=== PATIENT | male | born 1930 | race Caucasian/White ===

== ENCOUNTER 2019-04-01 11:29 | Observation (INO) | payer MEDICARE ==
[2019-04-01 12:01] LABS: #Basophils 0.1 thou/uL (0.0-0.2); #Eosinphils 0.2 thou/uL (0.0-0.7); #Lymphocytes 1.2 thou/uL (1.20-3.40); #Neutrophils 7.2 thou/uL (1.40-6.50); %Basophils 0.6 % (0.0-1.0); %Eosinophils 1.9 % (0.0-10.0); %Lymphocytes 12.5 % (21.0-51.0); Hemoglobin 13.2 g/dL (14.0-18.0); Mean Corpuscular HGB CONC 33.2 g/dL (32.0-36.0); Mean Corpuscular Hemoglobin 32.6 pg (27.0-31.0); Mean Corpuscular Volume 98.3 fL (78.0-98.0); Mean Platelet Volume 7.1 fL (7.4-10.4); Platelet Count 220 thou/uL (130-400); RBC Distribution Width 14.4 % (11.5-14.5); Red Blood Cell (RBC) Count 4.04 mill/uL (4.70-6.10); White Blood Cell (WBC) Count 9.6 thou/uL (4.8-10.8)
[2019-04-01 12:43] LABS: ALT (SGPT) 32 U/L (8-55); AST (SGOT) 25 U/L (5-34); Albumin 4.1 g/dL (3.4-4.8); Alkaline Phosphatase 45 U/L (40-150); Anion Gap 12 mmol/L (10-20); BUN (Urea Nitrogen) 23 mg/dL (8.4-25.7); Bilirubin, Total 0.9 mg/dL (0.2-1.2); Calc. Creatinine Clearance 0 mL/min (70-130); Calcium 9.5 mg/dL (7.8-10.44); Carbon Dioxide 19 mmol/L (23-31); Chloride 111 mmol/L (98-107); Estimated GFR-MDRD 64; Globulin 2.6 g/dL (2.4-3.5); Glucose 102 mg/dL (83-110); Potassium 4.4 mmol/L (3.5-5.1); Protein, Total 6.7 g/dL (5.8-8.1); Sodium 137 mmol/L (136-145)
--- NOTE | 2019-04-01 13:20 | CT ---
CT BRAIN WITHOUT CONTRAST: HISTORY:Syncope, weakness. Prostate cancer, atrial fibrillation. Patient on Xarelto. COMPARISON:None FINDINGS: There are foci of decreased attenuation in the periventricular white matter, consistent with chronic small vessel ischemic disease. No evidence of acute infarct, hemorrhage, midline shift or abnormal extra-axial fluid collections is seen. The ventricular size is appropriate and the basilar cisterns are patent. The bony calvarium is intact. The visualized paranasal sinuses and mastoid air cells are well aerated. Possibility of intracranial metastatic disease cannot be excluded due to absence of IV contrast. IMPRESSION: No CT evidence of acute intracranial process.
[2019-04-01 13:55] LABS: Bilirubin Negative (Negative); Blood, Urine Negative (Negative); Clarity CLEAR (Clear); Glucose, Urine (Dipstick) Negative (Negative); Leukocyte Negative (Negative); Nitrite Negative (Negative); Protein, Urine (Dipstick) Negative (Neg-Trace); Specific Gravity, Urine 1.022 (1.002-1.036)
[2019-04-01 16:19] LABS: Troponin I 0.018 ng/mL (< 0.028)
[2019-04-01] MEDS ORDERED: Acetaminophen 325 MG TAB PO PRN (16:26)
[2019-04-01] MEDS ORDERED: Zolpidem Tartrate 5 MG TAB PO PRN (16:26)
[2019-04-01] MEDS ORDERED: Ondansetron ODT 4 MG TAB PO PRN (16:26)
--- NOTE | 2019-04-01 17:16 | ULT ---
Carotid arterial Doppler ultrasound: 04/01/2019 COMPARISON: None HISTORY: Syncope TECHNIQUE: Multiplanar grayscale sonographic assessment of the arterial structures of the neck obtain ed with color flow and spectral analysis FINDINGS: Antegrade blood flow noted within the carotid and vertebral system bilaterally. The right c ommon carotid artery is tortuous proximally. Peak systolic velocity within the common carotid artery is 37 cm/s on the right and 71 cm/s on the le ft. Peak systolic velocity of the internal carotid artery is 34 cm/s on the right and 44 cm/s on the left. ICA/CCA ratio 0.9 on the right and 0.6 on the left. No hemodynamically significant stenosis noted on the basis of sonographic velocity criteria. IMPRESSION: No sonographic evidence of hemodynamically significant stenosis.
--- NOTE | 2019-04-01 17:38 | RAD ---
2 views of the chest: 04/01/2019 COMPARISON: 12/12/2016 HISTORY: Syncope, shaking FINDINGS: The descending thoracic aorta is tortuous. No pneumothorax or pleural fluid. No focal conso lidation or alveolar edema. Small hiatal hernia noted. Lungs are hyperinflated, suggesting air trapping. IMPRESSION: No radiographic evidence of acute cardiopulmonary disease.
--- NOTE | 2019-04-01 17:43 | HP ---
PRIMARY CARE PROVIDER: Leeroy Tran MD. HISTORY OF PRESENT ILLNESS: Referred to the [facility] for syncope. The patient got up out of bed this morning, felt weak, got dressed, went to the bathroom, was sitting on the commode. Family says he jerked a few times, passed out. He was out just a few seconds. The manager clinical informatics were called. He was lucid, cooperative at that time. He is amnesic for that episode. He had no incontinence of stool or urine. No prior history of fainting. PAST MEDICAL HISTORY: Pertinent for atrial fibrillation; hypertension; dyslipidemia; and prostate cancer, for which he has had radiation therapy 10 to 15 years ago. He has had a recurrence. He has been recently started on Lupron, and his notes that his symptoms have dramatically changed on the Lupron that he has been weak. CURRENT MEDICATIONS: 1. Lisinopril 2.5 mg a day. 2. Lipitor 40 mg a day. 3. Aspirin 81 mg a day. 4. Lasix 40 mg a day. 5. Digoxin 125 mcg a day. 6. Isosorbide dinitrate 30 mg in the morning. 7. Metoprolol 25 mg twice a day. 8. Pepcid AC 10 mg. 9. Megestrol 20 mg 2 tablets twice a day. 10. Oxybutynin 5 mg twice a day. 11. Xarelto 15 mg p.o. b.i.d. ALLERGIES: CODEINE SULFATE. PAST SURGICAL HISTORY: Bilateral cataract surgeries; multiple skin cancers removed, basal cell and squamous cell. FAMILY HISTORY: Mother of brain tumor. Father of dementia. He has 2 siblings with prostate cancer and early dementia. SOCIAL HISTORY: . Full code status. at bedside. No tobacco. Drinks 2 glasses of wine at night. REVIEW OF SYSTEMS: GENERAL: No fevers, sweats, or chills. EYES: No double vision, blurred vision, or flashing lights. EARS, NOSE, AND THROAT: No ear pain or drainage. He did have some nasal bleeding on Coumadin in the distant past. No oral pain. CARDIAC: No pressure, chest pain, paroxysmal nocturnal dyspnea, or orthopnea. RESPIRATIONS: No cough, wheezing, or asthma. GASTROINTESTINAL: He has some epigastric pain after a meal lasted about 30 minutes about 2 nights ago, nothing since, lasted only about 30 minutes. No associated nausea, vomiting, etc. GENITOURINARY: No hematuria or dysuria. MUSCULOSKELETAL: No pain or swelling in his arms or legs. NEUROLOGIC: No strokes, seizures, or focal weakness. PSYCHIATRIC: No anxiety or depression. SKIN: Easy bruising with minor trauma. No rashes. HEME/LYMPH: No tender or swollen lymph nodes in the axilla, inguinal, or cervical area. PHYSICAL EXAMINATION: GENERAL: He is alert, oriented, cooperative, pleasant gentleman. Parenthetically, somehow I got on the bad side of his , and she is currently quite hostile and sarcastic with me. VITAL SIGNS: Blood pressure 152/91, pulse 80, respirations 18, temperature 97.9. HEAD, EYES, EARS, NOSE, AND THROAT: Reveals pupils round with implants. Extraocular movements are intact. Sclerae are white. Tympanic membranes are clear. Nose is clear. Oral mucous membranes are wet. NECK: Supple without jugular venous distention, adenopathy, or thyromegaly. CHEST: Clear to auscultation and percussion. HEART: Regular rate and rhythm. 3/6 pansystolic murmur. ABDOMEN: Soft. Bowel sounds are normal. There is no hepatosplenomegaly. No mass. No bruit. EXTREMITIES: No cyanosis, clubbing, or edema. PULSES: Carotid, radial, femoral, and dorsalis pedis pulses intact. SKIN: Warm and dry without bruises or rash. HEME/LYMPH: No tender or swollen lymph nodes in the axilla, inguinal, or cervical area. NEUROLOGIC: Cranial nerves 2 through 12 are intact. Deep tendon reflexes are symmetric. IMAGING DATA: EKG; atrial fibrillation, nonspecific ST-T abnormality, Q waves anteriorly consistent with an old anterior MS. Brain CT was done, which showed no acute intracranial abnormality, reviewed by me. Chest x-ray has been ordered. LABORATORY DATA: Comprehensive metabolic profile; chloride of 111, CO2 of 19, otherwise normal. Troponins normal at 0.017 and 0.018. BNP was 413. Urine was clear. White count was 9.6, hemoglobin 13.2, platelet count 229,000. ADMITTING DIAGNOSES: 1. Syncope. 2. Atrial fibrillation. 3. Chronic anticoagulation. 4. Hypertension. 5. Mitral insufficiency. 6. Prostate cancer, on Lupron. 7. Dyslipidemia. PLAN: 23-hour observation for telemetry. Carotid ultrasounds. Because of the jerking, a prolactin level has been ordered. Dr. Lilly is being consulted. The patient has had a recent echocardiogram, and I have not done one for his heart murmur because of that. CBC and basic metabolic profile will be repeated in the morning. ADDITIONAL NOTE: During the interview and exam, I noticed a cellphone being carried around by one of the female members of the group. I did not take any note of it till near the end when I noticed that obviously I was either being recorded or someone was listening in. There was a red dot in the middle of the phone where you would turn it off. I said nothing about this, but it has made me extremely uncomfortable in dealing with this patient and his family. Job ID: [id number]
[2019-04-01 18:41] LABS: Troponin I 0.034 ng/mL (< 0.028)
[2019-04-01 18:59] VITALS: BMI 25.2
[2019-04-01] MEDS: Rivaroxaban 15 MG TAB PO SCH (21:07)
[2019-04-01] MEDS: Atorvastatin Calcium 40 MG TAB PO SCH (21:07)
[2019-04-01] MEDS: Metoprolol Tartrate 25 MG TAB PO SCH (21:08)
[2019-04-02 05:52] LABS: #Basophils 0.1 thou/uL (0.0-0.2); #Eosinphils 0.3 thou/uL (0.0-0.7); #Lymphocytes 1.4 thou/uL (1.20-3.40); #Monocytes 1.1 thou/uL (0.11-0.59); #Neutrophils 4.9 thou/uL (1.40-6.50); %Basophils 0.8 % (0.0-1.0); %Eosinophils 3.4 % (0.0-10.0); %Lymphocytes 18.4 % (21.0-51.0); %Monocytes 14.6 % (0.0-10.0); %Neutrophils 62.7 % (42.0-75.0); Hemoglobin 12.8 g/dL (14.0-18.0); Mean Corpuscular HGB CONC 33.7 g/dL (32.0-36.0); Mean Corpuscular Volume 98.1 fL (78.0-98.0); Mean Platelet Volume 7.4 fL (7.4-10.4); Platelet Count 193 thou/uL (130-400); RBC Distribution Width 14.4 % (11.5-14.5); Red Blood Cell (RBC) Count 3.87 mill/uL (4.70-6.10); White Blood Cell (WBC) Count 7.7 thou/uL (4.8-10.8)
[2019-04-02 06:04] LABS: Anion Gap 11 mmol/L (10-20); BUN (Urea Nitrogen) 23 mg/dL (8.4-25.7); Calc. Creatinine Clearance 63 mL/min (70-130); Carbon Dioxide 20 mmol/L (23-31); Chloride 107 mmol/L (98-107); Estimated GFR-MDRD 75; Glucose 88 mg/dL (83-110); Potassium 3.7 mmol/L (3.5-5.1); Sodium 134 mmol/L (136-145)
[2019-04-02] MEDS: Furosemide 40 MG TAB PO SCH (08:17)
[2019-04-02] MEDS: Lisinopril 2.5 MG TAB PO SCH (08:17)
[2019-04-02] MEDS: Rivaroxaban 15 MG TAB PO SCH ×2 (08:17→21:21)
[2019-04-02] MEDS: Aspirin 81 mg Enteric Coated Tablet PO SCH (08:17)
[2019-04-02] MEDS: Metoprolol Tartrate 25 MG TAB PO SCH ×2 (08:18→21:20)
[2019-04-02] MEDS ORDERED: Gadobenate Dimeglumine 529 MG/1 ML (20ML VIAL) ONE (08:47)
--- NOTE | 2019-04-02 13:40 | PDOC.PN ---
- Subjective Encounter Start Date: 04/02/19 Encounter Start Time: 13:36 Subjective: Patient states he is feeling great. Denies any complaints. -: Reports having a great appetite and no n/v. Denies any pain. -: Has been walking to the toilet without any dizziness or lightheadedness. Denies any abdominal pain. Normal bowel movements. No urinary symptoms. Denies any chest pain or sob. - Objective Resuscitation Status - Order Detail: 04/01/19 16:23 Resuscitation Status Routine Resuscitation Status: FULL: Full Resuscitation Discussed with: Gloria Vital Signs & Weight: Vital Signs (12 hours) Temp Pulse Resp BP BP BP BP 04/02/19 11:52 97.9 F 65 18 127/81 04/02/19 07:30 98.4 F 78 18 154/95 H 168/92 H 173/100 H 04/02/19 03:58 97.6 F 84 16 170/90 H Pulse Ox 04/02/19 11:52 95 04/02/19 07:30 98 04/02/19 03:58 96 Weight Weight 186 lb 9 oz I&O: 04/01/19 04/02/19 04/03/19 06:59 06:59 06:59 Intake Total 450 Balance 450 Result Diagrams: 04/02/19 04:34 04/02/19 04:34 Phys Exam - Physical Examination Constitutional: NAD HEENT: PERRLA, moist MMs, sclera anicteric, oral pharynx no lesions Neck: no nodes, supple, full ROM Respiratory: clear to auscultation bilateral Cardiovascular: RRR Gastrointestinal: soft, non-tender, no distention, positive bowel sounds Musculoskeletal: no edema, pulses present Neurological: non-focal, normal sensation, moves all 4 limbs Psychiatric: normal affect, A&O x 3 Skin: no rash, normal turgor Dx/Plan (1) Orthostatic hypotension Code(s): I95.1 - ORTHOSTATIC HYPOTENSION Status: Acute (2) Afib Code(s): I48.91 - UNSPECIFIED ATRIAL FIBRILLATION Status: Acute (3) CHF (congestive heart failure) Code(s): I50.9 - HEART FAILURE, UNSPECIFIED Status: Acute (4) HTN (hypertension) Code(s): I10 - ESSENTIAL (PRIMARY) HYPERTENSION Status: Chronic (5) Prostate cancer Code(s): C61 - MALIGNANT NEOPLASM OF PROSTATE Status: Chronic - Plan cont current plan of care Discussed with Dr. Hernandez who agreed given elevated Procalcitonin -: and Prostate cancer, would benefit from MRI brain. -: Awaiting Cardiology review. -: Repeat Orthostatic BPs (drop 170 to 12 systolic sitting to standing yest) ADDENDUM: MRI Brain unremarkable. Seen by Dr. Biggs who feels episode related to postural hypotension. He advised halter monitor and fup as outpatient. refusing. Will be monitored overnight, for discharge tomorrow. Patient remains without complaints.
--- NOTE | 2019-04-02 17:09 | MRI ---
MRI BRAIN WITH AND WITHOUT CONTRAST: DATE: 04/02/2019 HISTORY: 80-year-old female with seizure-like activity, generalized weakness, syncope, history of prostate can cer. TECHNIQUE: Multiplanar, multisequence MRI of the brain obtained pre and post IV injection of gadolinium based co ntrast agent. FINDINGS: There is no obstructive hydrocephalus. There is no midline shift or any other evidence of mass effect . There is no extra-axial fluid collection. There is a moderate degree of T2-hyperintensities in the cerebral white matter consistent with chronic ischemic white matter changes due to microvascular atherosclerosis. There is no abnormal enhancement, mass, recent hemorrhage, or restricted diffusion. IMPRESSION: 1) moderate chronic ischemic white matter changes. 2) otherwise negative
--- NOTE | 2019-04-02 21:11 | PRG ---
DATE OF SERVICE: 04/02/2019 SUBJECTIVE: Mr. Delgado is an 89-year-old patient of Dr. Harshil Lilly, who had a syncopal episode yesterday. Mr. Delgado states he does remember the details of what happened, but his fortunately is able to give a very good history. He went to take a shower. He did not come back. When she expected into, she found him unconscious on the toilet. She is able to help him down. He regained consciousness. The patient has history of prostate cancer, is on Lupron, received Lupron dose relatively recently and feels weak after that. PAST MEDICAL HISTORY: Coronary artery disease, best treated medically. Atrial fibrillation, chronic. OBJECTIVE: VITAL SIGNS: Blood pressure has been variable 150/95 and another of 127/81, pulse 65 and irregular. LUNGS: Clear. CARDIAC: Irregularly irregular. ABDOMEN: Soft, nontender. EXTREMITIES: There is no edema. ASSESSMENT AND PLAN: 1. Syncopal episode, seems most likely to be orthostatic hypotension, but certainly with atrial fibrillation, a pause can occur. However, this seems to have resolved when he is able to lie flat. He did not completely fall off the toilet, easily seen with a long pause. As a precaution, the following will be done: a. Monitor him here in the hospital. b. Increase activity. c. Check orthostatic hypotension. 2. Probably home tomorrow with a monitor if doing well. Dr. Lilly will resume care tomorrow. Job ID: [id number]
[2019-04-02] MEDS: Atorvastatin Calcium 40 MG TAB PO SCH (21:20)
[2019-04-03] MEDS: Furosemide 40 MG TAB PO SCH (08:48)
[2019-04-03] MEDS: Aspirin 81 mg Enteric Coated Tablet PO SCH (08:48)
[2019-04-03] MEDS: Lisinopril 2.5 MG TAB PO SCH (08:48)
[2019-04-03] MEDS: Metoprolol Tartrate 25 MG TAB PO SCH (08:48)
[2019-04-03] MEDS: Rivaroxaban 15 MG TAB PO SCH (08:49)
[2019-04-03 15:25] VITALS: BP 131/86; TEMP 98.5
--- NOTE | 2019-04-04 12:51 | DIS ---
DATE OF ADMISSION: 04/01/2019 DATE OF DISCHARGE: 04/03/2019 CONSULTING PHYSICIAN: Dr. Biggs, Cardiology. DISCHARGE DIAGNOSES: 1. Syncopal episode. 2. Orthostatic hypotension, resolved. 3. Atrial fibrillation. 4. Coronary artery disease. 5. Hypertension. HOSPITAL COURSE: Mr. Delgado is an 89-year-old man, who was admitted after presenting with a syncopal episode. After further questioning, it appears that he did not fall completely to the ground, but nearly fell while on the toilet. He has had falls in the past associated with orthostatic hypotension. The patient denies experiencing any preceding chest pain or shortness of breath. No dizziness. Family reported jerking movement and he came to within a few seconds. He was admitted for further investigations and underwent laboratory studies that are notable for BNP of 413. Full blood count was unremarkable. Troponins were negative x3. He did have urinalysis done, which was also negative. The patient did well throughout his entire hospital stay and had no further episodes. He did have orthostatic hypotension evident on orthostatic BPs with a drop from 162/102 while supine to 127/95 while standing. He received gentle hydration. On day of discharge, his blood pressures have improved. He had a supine blood pressure of 136/94 to 110/78 while sitting and then 107/86 while standing. He denies having any symptoms such as dizziness or lightheadedness. He has tolerated a very good diet. We will monitor overnight. He did undergo imaging including a CT of the brain, which showed no acute intracranial abnormalities. This was followed by carotid Dopplers, which showed no hemodynamically significant stenosis on the left or right ICA. Chest x-ray was done, which showed mild CHF. However, the patient did not have any clinical symptoms of fluid overload. He had an MRI of the brain done, which showed moderate chronic ischemic white matter changes, otherwise negative. Dr. Biggs evaluated the patient on 04/02/2019 and had cleared him from a cardiac standpoint for discharge on a monitor. The family, however, did not feel comfortable with this, therefore he was kept overnight for observation. On day of discharge, the patient continues to do well. He has been cleared by Dr. Lilly, who is backshoe person with plans for discharge on Holter monitor and follow up as an outpatient. In fact, he has remained asymptomatic throughout his stay and feels significantly better. He is cleared for discharge to home. REVIEW OF SYSTEMS: All other review of systems apart from those mentioned above in hospital course are negative. PHYSICAL EXAMINATION: GENERAL: The patient appears well developed, well nourished, and is in no acute distress. He is in very good spirits and very much eager to go home. VITAL SIGNS: Temperature 98.1, pulse 80, respirations 20, O2 saturation 95% on room air, blood pressure 139/104. HEENT: Normocephalic, atraumatic. Pupils are equal, round, and reactive to light. Extraocular movements are intact. No nystagmus present. Oropharynx is clear. NECK: Supple without lymphadenopathy. Full range of motion. No cervical spine tenderness. CARDIAC: Normal heart sounds. LUNGS: Clear to auscultation bilaterally without any wheezes, rales, or rhonchi. No chest wall tenderness. ABDOMEN: Soft, nontender, nondistended. Normoactive bowel sounds present. EXTREMITIES: Without any lower limb edema or calf pain/tenderness. NEUROLOGIC: Alert and oriented x3. Speech is normal. Facial movements and sensation are intact. No neuro deficits on exam. Gait, normal. SKIN: Without rash or jaundice. LABORATORY DATA: White blood count 7.7, hemoglobin 12.8, hematocrit 37.9, platelets 193. Sodium 134, potassium 3.7, chloride 107, carbon dioxide 20, anion gap 11, BUN 23, creatinine 0.95, GFR 75, glucose 88, calcium 9. LFTs unremarkable. Troponins; 0.017, 0.018, 0.034. BNP 413.9. Prolactin on admission. Urinalysis is negative. IMAGING: As mentioned above in hospital course. CONDITION: Stable at discharge. DIET: Heart healthy. ACTIVITY: As tolerated. DISCHARGE MEDICATIONS: The patient advised to resume home medications. FOLLOWUP: The patient advised to follow up with his primary care physician within 1 week. He will follow up with Dr. Lilly as an outpatient. Dr. Lilly will set up a Holter monitor. DISPOSITION: The patient was medically cleared for discharge home on 04/03/2019. His case was discussed with Dr. Hernandez, who agrees with plan of care as described above. Job ID: [id number]
--- NOTE | 2019-04-06 16:05 | EKG ---
Test Reason : SYNCOPE Blood Pressure : / mmHG Vent. Rate : 069 BPM Atrial Rate : 127 BPM P-R Int : 000 ms QRS Dur : 102 ms QT Int : 406 ms P-R-T Axes : 000 007 -87 degrees QTc Int : 435 ms Atrial fibrillation with premature ventricular or aberrantly conducted complexes Inferior infarct , age undetermined Anterior infarct , age undetermined Abnormal ECG Confirmed by GERARD NEVILLE ([id number]), scientific editor MARIA DE JESUS MUSTAFA ([id number]) on 04/06/2019 4:04:48 PM Referred By: JAMIN Confirmed By:GERARD NEVILLE
== END 2019-04-03 17:35 | disposition home or self-care (01) ==
LOC: ERS 11:29 → ERHOLD 14:30 → 2SW 18:36
PROVIDERS: ADMIT Internal Medicine; ATTEND Internal Medicine
DX: I95.1 Orthostatic hypotension (principal); I25.10 Atherosclerotic heart disease of native coronary artery without angina pectoris; I48.2 Chronic atrial fibrillation; E78.5 Hyperlipidemia, unspecified; I11.0 Hypertensive heart disease with heart failure; I50.9 Heart failure, unspecified; C61 Malignant neoplasm of prostate; Z79.01 Long term (current) use of anticoagulants; Z79.82 Long term (current) use of aspirin; Z79.899 Other long term (current) drug therapy; Z88.5 Allergy status to narcotic agent
CPT/HCPCS: 70450; 70553; 71046; 80048; 80053; 81003; 83880; 84146; 84484 ×2; 85025 ×2; 93005; 93880; 96360; 99285; G0378 ×2; 36415; A9577

== ENCOUNTER 2019-06-29 23:14 | Observation (INO) | payer MEDICARE ==
[2019-06-29] MEDS ORDERED: cloNIDine 0.1 MG TAB ONE (23:44)
[2019-06-29 23:50] LABS: Hemoglobin 13.2 g/dL (14.0-18.0); Mean Corpuscular HGB CONC 33.5 g/dL (32.0-36.0); Mean Platelet Volume 6.8 fL (7.4-10.4); Platelet Count 172 thou/uL (130-400); RBC Distribution Width 13.4 % (11.5-14.5); Red Blood Cell (RBC) Count 3.89 mill/uL (4.70-6.10); White Blood Cell (WBC) Count 6.6 thou/uL (4.8-10.8)
--- NOTE | 2019-06-29 23:52 | CT ---
CT Brain WO Con History: High blood pressure. Comparison: CT brain April 01, 2019 Findings: No acute hemorrhage or infarct. No midline shift or mass effect. Ventricular size and extra -axial CSF spaces are normal. Calvarium is intact. Paranasal sinuses and mastoids are clear. Advanced chronic microangiopathic changes. Impression: No acute intracranial abnormality.
--- NOTE | 2019-06-29 23:53 | RAD ---
XR Chest 1 View Portable History: Chest pain Comparison: Radiograph April 01, 2019 Findings: The aorta is tortuous. Scarring both lung bases. No confluent airspace consolidation, pneum othorax or effusion. No acute osseous abnormality. Impression: No acute intrathoracic abnormality.
[2019-06-30 00:06] LABS: ALT (SGPT) 16 U/L (8-55); AST (SGOT) 18 U/L (5-34); Albumin 3.9 g/dL (3.4-4.8); Alkaline Phosphatase 49 U/L (40-150); Anion Gap 12 mmol/L (10-20); BUN (Urea Nitrogen) 17 mg/dL (8.4-25.7); Bilirubin, Total 0.5 mg/dL (0.2-1.2); Calc. Creatinine Clearance 0 mL/min (70-130); Calcium 9.3 mg/dL (7.8-10.44); Carbon Dioxide 23 mmol/L (23-31); Chloride 104 mmol/L (98-107); Estimated GFR-MDRD 87; Globulin 2.7 g/dL (2.4-3.5); Glucose 110 mg/dL (83-110); Potassium 3.8 mmol/L (3.5-5.1); Protein, Total 6.6 g/dL (5.8-8.1); Sodium 135 mmol/L (136-145)
[2019-06-30 00:18] LABS: Bilirubin Negative (Negative); Blood, Urine Trace (Negative); Clarity Clear (Clear); Glucose, Urine (Dipstick) Normal (Negative); Leukocyte Negative Leu/uL (Negative); Nitrite Negative (Negative); Protein, Urine (Dipstick) 10 mg/dL (Neg-Trace); Squamous Epithelial None Seen HPF (0-3); WBC/HPF 0-3 HPF (0-3)
[2019-06-30 00:19] LABS: Bacteria/HPF None Seen HPF (None Seen)
[2019-06-30 00:22] LABS: Hypochromia SLIGHT = 6-15 cells (100X) (0-5/hpf); Lymphocytes 18 % (21-51); MDiff Complete? YES; Macrocytosis SLIGHT = 6-15 cells (100X) (0-5/hpf); Monocytes 15 % (0-10); Neutrophil 67 % (42-75); Platelet Morphology Comment Appears Adequate
[2019-06-30 00:29] LABS: CKMB 2.8 ng/mL (0-6.6)
[2019-06-30 02:58] VITALS: BMI 25.1
[2019-06-30 03:21] LABS: Troponin I 0.035 ng/mL (< 0.028)
[2019-06-30] MEDS ORDERED: Acetaminophen 325 MG TAB PO PRN (09:44)
[2019-06-30] MEDS ORDERED: Acetaminophen 650 MG Suppository PR PRN (09:44)
[2019-06-30] MEDS ORDERED: Senokot S 8.6-50 MG TAB PO PRN (09:44)
[2019-06-30] MEDS ORDERED: Ondansetron ODT 4 MG TAB PO PRN (09:44)
[2019-06-30] MEDS ORDERED: Ondansetron PF 4 MG/2 ML Vial IVP PRN (09:44)
[2019-06-30] MEDS ORDERED: Digoxin 0.125 MG TAB PO SCH (09:45)
[2019-06-30] MEDS ORDERED: Oxybutynin 5 MG TAB PO SCH (09:45)
[2019-06-30 11:16] LABS: #Basophils 0.1 thou/uL (0.0-0.2); #Eosinphils 0.2 thou/uL (0.0-0.7); #Lymphocytes 1.4 thou/uL (1.20-3.40); #Monocytes 0.9 thou/uL (0.11-0.59); #Neutrophils 3.6 thou/uL (1.40-6.50); %Basophils 1.1 % (0.0-1.0); %Eosinophils 3.1 % (0.0-10.0); %Lymphocytes 22.4 % (21.0-51.0); %Monocytes 14.7 % (0.0-10.0); %Neutrophils 58.7 % (42.0-75.0); Hemoglobin 13.7 g/dL (14.0-18.0); Mean Corpuscular HGB CONC 32.6 g/dL (32.0-36.0); Mean Corpuscular Hemoglobin 33.1 pg (27.0-31.0); Mean Platelet Volume 7.2 fL (7.4-10.4); Platelet Count 180 thou/uL (130-400); RBC Distribution Width 13.3 % (11.5-14.5); Red Blood Cell (RBC) Count 4.13 mill/uL (4.70-6.10); White Blood Cell (WBC) Count 6.2 thou/uL (4.8-10.8)
--- NOTE | 2019-06-30 11:19 | MRI ---
NONCONTRAST MRI BRAIN: HISTORY: Dysarthria. High blood pressure. Weakness and speech disturbance. COMPARISON: MRI brain on 04/02/2019. FINDINGS: Again noted is confluent increased FLAIR and T2 weighted signal intensity in the periventricular and subcortical white matter which is nonspecific but likely reflective of moderate to severe chronic sma ll-vessel ischemic changes. No acute infarction is identified. The septum pellucidum and third ventricle are in the midline. There is diffuse cerebral volume loss and to a lesser extent cerebellar volume loss. The ventricular system is normal in size, shape, and position for the degree of sulcal atrophy. Appropriate flow voids are demonstrated at the base of the brain. Mastoid effusions are again seen on the right. The paranasal sinuses are clear. Lower Brule lenses are not visualized. There has been no interval change when compared to the prior MRI exam. IMPRESSION: 1. No acute intracranial abnormalities demonstrated. 2. Cerebral and cerebellar volume loss. 3. Moderate to severe chronic small-vessel ischemic changes. 4. Mastoids effusions on the right also seen on prior study. POS: KHADRA
[2019-06-30 11:45] LABS: ALT (SGPT) 15 U/L (8-55); AST (SGOT) 20 U/L (5-34); Alkaline Phosphatase 51 U/L (40-150); Anion Gap 10 mmol/L (10-20); BUN (Urea Nitrogen) 15 mg/dL (8.4-25.7); Bilirubin, Total 0.9 mg/dL (0.2-1.2); Calc. Creatinine Clearance 69 mL/min (70-130); Calcium 9.6 mg/dL (7.8-10.44); Carbon Dioxide 27 mmol/L (23-31); Chloride 104 mmol/L (98-107); Estimated GFR-MDRD 84; Globulin 2.7 g/dL (2.4-3.5); Glucose 106 mg/dL (83-110); Potassium 3.7 mmol/L (3.5-5.1); Protein, Total 6.7 g/dL (5.8-8.1); Sodium 137 mmol/L (136-145)
[2019-06-30] MEDS ORDERED: Amlodipine 5 MG TAB PO SCH (15:00)
[2019-06-30 16:05] VITALS: BP 127/80; TEMP 97.5
[2019-06-30] MEDS ORDERED: Aspirin 81 mg Enteric Coated Tablet PO SCH (21:00)
[2019-06-30] MEDS ORDERED: Atorvastatin Calcium 40 MG TAB PO SCH (21:00)
[2019-06-30] MEDS ORDERED: Famotidine 20 MG TAB PO SCH (21:00)
[2019-06-30] MEDS ORDERED: Rivaroxaban 15 MG TAB PO SCH (21:00)
[2019-06-30] MEDS ORDERED: FAMOTIDINE 10 MG PO SCH (21:00)
[2019-07-01] MEDS ORDERED: Digoxin 0.125 MG TAB PO SCH (09:00)
[2019-07-01] MEDS ORDERED: Aspirin 325 mg Enteric Coated Tablet PO SCH (09:00)
[2019-07-01] MEDS ORDERED: Oxybutynin 5 MG TAB PO SCH (09:00)
--- NOTE | 2019-07-06 15:14 | EKG ---
Test Reason : HTN Blood Pressure : / mmHG Vent. Rate : 091 BPM Atrial Rate : 100 BPM P-R Int : 000 ms QRS Dur : 104 ms QT Int : 402 ms P-R-T Axes : 000 020 -77 degrees QTc Int : 494 ms Atrial fibrillation with premature ventricular or aberrantly conducted complexes Septal infarct , age undetermined Cannot rule out Inferior infarct , age undetermined Abnormal ECG Confirmed by KAYLEIGH BHATTI D.O. ([id number]), food expeditor LETICIA THAKUR ([id number]) on 07/06/2019 3:14:12 PM Referred By: DAVY Confirmed By:KAYLEIGH BHATTI D.O.
== END 2019-06-30 18:16 | disposition home or self-care (01) ==
LOC: ERS 23:14 → 2SE 06-30 00:39
PROVIDERS: ADMIT Hospitalist; ATTEND Hospitalist
DX: I10 Essential (primary) hypertension (principal); R79.89 Other specified abnormal findings of blood chemistry; I48.91 Unspecified atrial fibrillation; E78.5 Hyperlipidemia, unspecified; E78.00 Pure hypercholesterolemia, unspecified; Z79.01 Long term (current) use of anticoagulants; Z88.5 Allergy status to narcotic agent; Z79.82 Long term (current) use of aspirin; Z79.899 Other long term (current) drug therapy
CPT/HCPCS: 70450; 70551; 71045; 80053 ×2; 82553; 83880; 84484 ×3; 85025 ×2; 93005; 94760; 97139; 99285; G0378 ×2; 36415; 81003; 81015

== ENCOUNTER 2019-07-25 20:23 | Observation (INO) | payer MEDICARE ==
[2019-07-25 21:51] LABS: #Basophils 0.1 thou/uL (0.0-0.2); #Eosinphils 0.1 thou/uL (0.0-0.7); #Lymphocytes 1.2 thou/uL (1.20-3.40); #Monocytes 0.9 thou/uL (0.11-0.59); #Neutrophils 4.1 thou/uL (1.40-6.50); %Eosinophils 2.2 % (0.0-10.0); %Lymphocytes 19.5 % (21.0-51.0); %Monocytes 13.6 % (0.0-10.0); %Neutrophils 63.7 % (42.0-75.0); Hemoglobin 14.7 g/dL (14.0-18.0); Mean Corpuscular HGB CONC 33.3 g/dL (32.0-36.0); Mean Corpuscular Hemoglobin 33.7 pg (27.0-31.0); Mean Platelet Volume 6.7 fL (7.4-10.4); Platelet Count 204 thou/uL (130-400); RBC Distribution Width 12.4 % (11.5-14.5); Red Blood Cell (RBC) Count 4.37 mill/uL (4.70-6.10); White Blood Cell (WBC) Count 6.4 thou/uL (4.8-10.8)
[2019-07-25 21:59] LABS: INR-International Normal Ratio 1.8; Prothrombin Time 20.7 SEC (12.0-14.7)
[2019-07-25 22:00] LABS: PTT 36.6 SEC (22.9-36.1)
[2019-07-25 22:15] LABS: Bilirubin Negative (Negative); Blood, Urine Negative (Negative); Clarity Clear (Clear); Glucose, Urine (Dipstick) Normal (Negative); Leukocyte Negative Leu/uL (Negative); Nitrite Negative (Negative); Protein, Urine (Dipstick) Negative (Neg-Trace); Urobilinogen Normal mg/dL (Less than 2)
[2019-07-25 22:16] LABS: ALT (SGPT) 20 U/L (8-55); AST (SGOT) 25 U/L (5-34); Albumin 4.3 g/dL (3.4-4.8); Alkaline Phosphatase 48 U/L (40-150); Anion Gap 12 mmol/L (10-20); BUN (Urea Nitrogen) 19 mg/dL (8.4-25.7); Calc. Creatinine Clearance 0 mL/min (70-130); Calcium 9.9 mg/dL (7.8-10.44); Carbon Dioxide 29 mmol/L (23-31); Chloride 101 mmol/L (98-107); Estimated GFR-MDRD 64; Globulin 2.9 g/dL (2.4-3.5); Glucose 103 mg/dL (83-110); Potassium 3.7 mmol/L (3.5-5.1); Protein, Total 7.2 g/dL (5.8-8.1); Sodium 138 mmol/L (136-145)
--- NOTE | 2019-07-25 22:36 | CT ---
CT head noncontrast HISTORY: Altered mental status. COMPARISON: 07/03/2019. FINDINGS: There is no evidence of acute intracranial hemorrhage or infarct. Diffuse cortical atrophy and chronic ischemic small vessel disease are similar in appearance to the prior exam. There is no mass effect or shift of midline structures. IMPRESSION: Chronic-type findings are stable. No acute intracranial abnormalities are demonstrated.
[2019-07-26] MEDS ORDERED: Ondansetron PF 4 MG/2 ML Vial IVP PRN (02:47)
[2019-07-26] MEDS ORDERED: Ondansetron ODT 4 MG TAB SL PRN (02:47)
[2019-07-26] MEDS ORDERED: Acetaminophen 325 MG TAB PO PRN (02:47)
[2019-07-26 03:06] VITALS: BMI 27.8
[2019-07-26] MEDS ORDERED: Oxybutynin 5 MG TAB PO SCH (09:00)
[2019-07-26 09:06] LABS: Hemoglobin 13.6 g/dL (14.0-18.0); Mean Corpuscular Hemoglobin 34.6 pg (27.0-31.0); Mean Platelet Volume 7.1 fL (7.4-10.4); Platelet Count 180 thou/uL (130-400); RBC Distribution Width 12.2 % (11.5-14.5); Red Blood Cell (RBC) Count 3.94 mill/uL (4.70-6.10); White Blood Cell (WBC) Count 5.1 thou/uL (4.8-10.8)
[2019-07-26] MEDS: Famotidine 20 MG TAB PO SCH ×2 (09:13→20:12)
[2019-07-26] MEDS: Amlodipine 5 MG TAB PO SCH (09:13)
[2019-07-26] MEDS: Digoxin 0.125 MG TAB PO SCH (09:13)
[2019-07-26] MEDS: Aspirin 81 mg Enteric Coated Tablet PO SCH (09:15)
[2019-07-26 09:25] LABS: Eosinophils 4 % (0-10); Lymphocytes 25 % (21-51); MDiff Complete? YES; Monocytes 11 % (0-10); Neutrophil 59 % (42-75); RBC Morphology Normal; Reactive Lymphocytes 1 % (0-10)
[2019-07-26 09:26] LABS: Anion Gap 15 mmol/L (10-20); BUN (Urea Nitrogen) 19 mg/dL (8.4-25.7); Calc. Creatinine Clearance 64 mL/min (70-130); Calcium 9.5 mg/dL (7.8-10.44); Carbon Dioxide 22 mmol/L (23-31); Chloride 104 mmol/L (98-107); Estimated GFR-MDRD 68; Glucose 116 mg/dL (83-110); Potassium 3.7 mmol/L (3.5-5.1); Sodium 137 mmol/L (136-145)
[2019-07-26 09:27] LABS: Cardiac Risk 2.8 (Less than 4.5); Magnesium 2.1 mg/dL (1.6-2.6)
[2019-07-26 09:28] LABS: Digoxin 0.41 ng/mL (0.8-2.0)
--- NOTE | 2019-07-26 10:11 | ULT ---
BILATERAL CAROTID DUPLEX ULTRASOUND: HISTORY: TIA TECHNIQUE: Grayscale, color-flow and spectral Doppler ultrasound imaging of the extracranial carotid artery syst ems was performed bilaterally. FINDINGS: There is plaque formation on both sides. The peak systolic velocity in the right ICA measures 43 cm/s with an end-diastolic velocity of 16 cm/ s and a systolic ratio of 0.56. The peak systolic velocity in the left ICA measures 63 cm/s with an end-diastolic velocity of 16 cm/s and a systolic ratio of 0.75. Flow in both vertebral arteries remains antegrade. IMPRESSION: No evidence of hemodynamically significant stenosis in either ICA
--- NOTE | 2019-07-26 10:37 | MRI ---
MRI BRAIN WITHOUT CONTRAST: HISTORY: TIA. Slurred speech COMPARISON: 06/30/2019 CORRELATION: CT scan from 07/25/2019. FINDINGS: There are changes of cortical atrophy. No restricted diffusion is seen. There are multiple foci of T2 prolongation in the periventricular white matter, consistent with chronic small vessel ischemic disease. The ventricular size is appropriate and the basilar cisterns are patent. No evidence of acute infarct, hemorrhage, midline shift or abnormal extra-axial fluid collections is seen. There is fluid in the right mastoid air cells. IMPRESSION: No evidence of acute intracranial process.
[2019-07-26] MEDS ORDERED: Aspirin Chewable 81 MG TAB PO SCH (15:45)
--- NOTE | 2019-07-26 16:26 | HP ---
PRIMARY CARE PHYSICIAN: Dr. Leeroy Tran. CHIEF COMPLAINT: Dysphasia. HISTORY OF PRESENT ILLNESS: Mr. Delgado is an 89-year-old man with past medical history of hypertension, hyperlipidemia, atrial fibrillation, coronary artery disease, prostate cancer on his last month of chemo, and TIA, who had presented to [facility] late last night due to 15 to 20 minutes of dysphasia. The patient was having some trouble speaking and he had words coming out that did not make sense per . They had called 911, and by the time the EMS arrived, symptoms resolved. He had no fever, chills, headache, blurred vision, dizziness, chest pain, palpitations, shortness of breath, abdominal pain, nausea, vomiting, or any deficits. The patient and family stated that he had returned back to baseline. He was brought into the ED late last night and his workup was essentially normal. His CT brain without contrast showed chronic type findings, which were stable; however, no acute intracranial abnormalities were demonstrated. Urine was clean. The patient was admitted for similar like symptoms about 1 month ago. He was found to be hypertensive and started on amlodipine at that time. He was also diagnosed with a TIA and was stabilized and discharged, he had followed up with Dr. Lilly, his primary veterans' coordinator shortly after that, who had increased the amlodipine at 5 mg daily and increased his Xarelto from 15 b.i.d. to 20 daily. The patient states that since then he has been fine ever since up until last night. REVIEW OF SYSTEMS: All other systems reviewed and found to be negative unless mentioned in the HPI. PAST MEDICAL HISTORY: Hypertension, hyperlipidemia, atrial fibrillation, history of PEs in 2013, coronary artery disease, prostate cancer on his last month of chemo, and previous TIA in the past. PAST SURGICAL HISTORY: Cataract surgery basal cell removal. PSYCHIATRIC HISTORY: None. SOCIAL HISTORY: The patient lives at home with his family. He states that he drinks roughly 1 drink five days a week. He denies any tobacco or illicit drug use. KNOWN ALLERGIES: Codeine. CURRENT HOME MEDICATIONS: 1. Amlodipine 5 mg oral daily. 2. Atorvastatin 40 mg p.o. at bedtime. 3. Digoxin 125 mcg p.o. daily. 4. Pepcid 10 mg p.o. b.i.d. 5. Oxybutynin 5 mg p.o. daily. 6. Xarelto 20 mg oral daily. PHYSICAL EXAMINATION: VITAL SIGNS: Blood pressure 117/90, pulse 70, respirations 20, temperature 98.1, O2 saturations 97% on room air. GENERAL: The patient is awake, alert, and oriented x3. He is currently lying comfortably in bed and in no acute distress at this time. His family is at bedside. HEENT: Atraumatic and normocephalic. Pupils are round and reactive to light. Extraocular muscles are intact. Moist mucous membranes noted. NECK: Soft, supple. Trachea midline. CARDIOVASCULAR: Positive S1 and S2. Regular rate and rhythm. The patient does appear to have a 3/6 systolic murmur present. No edema noted. RESPIRATORY: Clear to auscultation bilaterally. No wheezes, rales, or rhonchi. ABDOMEN: Soft, nontender. Bowel sounds are present. MUSCULOSKELETAL: Strength 5+ bilaterally in upper and lower extremities. Moves all extremities equal. Pedal and radial pulses 2+ bilaterally. No edema noted. NEUROLOGIC: Cranial nerves 2 through 12 grossly intact. No focal deficits noted. Speech, intact and normal. Gait, not assessed. SKIN: Warm, dry, and intact. No rashes. No ulceration noted. PSYCHIATRIC: Good mood and affect. LABORATORY DATA: WBC 5.1, RBC 3.94, hemoglobin 13.6, hematocrit 40.0, platelet 180. Sodium 138, potassium 3.7, anion gap 12, BUN 19, creatinine 1.09, estimated GFR is 64, glucose 103. Urinalysis is unremarkable and negative for blood. DIAGNOSTIC IMAGING: CT brain without contrast showed chronic type findings are stable with no acute intracranial abnormalities demonstrated. ASSESSMENT AND PLAN: 1. Dysphasia, possibly a TIA. We will order carotid Dopplers, echocardiogram, and MRI of brain without contrast for further evaluation. We will recheck his blood work and monitor him on telemetry for any further dysrhythmia. 2. Hypertension, currently stable at this time. Continue home regimen and monitor blood pressure and other vital signs closely. 3. Hyperlipidemia. Continue home statin. 4. History of atrial fibrillation, currently in sinus rhythm. Continue home regimen. 5. History of coronary artery disease, currently stable, and he is asymptomatic at this time without any chest pain or any cardiac symptoms. 6. Deep venous thrombosis and gastrointestinal prophylaxis. 7. Code status: Full code. 8. Surrogate decision maker is his , Gloria. DISPOSITION: Pending further workup and clinical findings. Job ID: [id number]
[2019-07-26] MEDS: Oxybutynin 5 MG TAB PO SCH (20:13)
[2019-07-26] MEDS ORDERED: Atorvastatin Calcium 40 MG TAB PO SCH (21:00)
[2019-07-26] MEDS ORDERED: Rivaroxaban 10 MG TAB PO SCH (21:00)
[2019-07-27 05:07] LABS: Anion Gap 9 mmol/L (10-20); BUN (Urea Nitrogen) 18 mg/dL (8.4-25.7); Calc. Creatinine Clearance 70 mL/min (70-130); Calcium 9.2 mg/dL (7.8-10.44); Carbon Dioxide 28 mmol/L (23-31); Chloride 105 mmol/L (98-107); Estimated GFR-MDRD 76; Glucose 104 mg/dL (83-110); Potassium 3.9 mmol/L (3.5-5.1); Sodium 138 mmol/L (136-145)
[2019-07-27 05:28] LABS: Band 1 % (5-11); Elliptocytes SLIGHT = 2-5 cells (100X) (0-1/hpf); Eosinophils 3 % (0-10); Hemoglobin 12.7 g/dL (14.0-18.0); Lymphocytes 36 % (21-51); MDiff Complete? YES; Mean Corpuscular HGB CONC 33.6 g/dL (32.0-36.0); Mean Corpuscular Hemoglobin 34.8 pg (27.0-31.0); Mean Platelet Volume 6.6 fL (7.4-10.4); Monocytes 18 % (0-10); Neutrophil 41 % (42-75); Platelet Count 167 thou/uL (130-400); Platelet Morphology Comment Appears Adequate; RBC Distribution Width 12.4 % (11.5-14.5); Red Blood Cell (RBC) Count 3.66 mill/uL (4.70-6.10); White Blood Cell (WBC) Count 4.8 thou/uL (4.8-10.8)
[2019-07-27 07:58] VITALS: BP 148/83; TEMP 97.6
[2019-07-27] MEDS: Digoxin 0.125 MG TAB PO SCH (08:49)
[2019-07-27] MEDS: Aspirin 81 mg Enteric Coated Tablet PO SCH (08:49)
[2019-07-27] MEDS: Famotidine 20 MG TAB PO SCH (08:49)
[2019-07-27] MEDS: Amlodipine 5 MG TAB PO SCH (08:49)
[2019-07-27] MEDS: Oxybutynin 5 MG TAB PO SCH (08:50)
--- NOTE | 2019-07-29 12:01 | DIS ---
DATE OF ADMISSION: 07/26/2019 DATE OF DISCHARGE: 07/27/2019 DISCHARGE DIAGNOSES: 1. Dysphagia. 2. Probable transient ischemic attack. 3. Hypertension. 4. Hyperlipidemia. 5. Atrial fibrillation. 6. History of coronary artery disease. 7. Prostate cancer. 8. History of prior transient ischemic attacks. HISTORY OF PRESENT ILLNESS: The patient is an 89-year-old male who presented to the emergency department with some dysphagia and possible dysarthria that lasted for about 15 minutes and subsequently resolved. He had been admitted about 1 month prior and had similar symptoms. He had his Xarelto dose increased at that time and his workup at that time was unremarkable. HOSPITAL COURSE: The patient was placed in observation. His initial head CT did not show any acute findings. Subsequent MRI showed no evidence of any acute intracranial process. Carotid Dopplers showed no evidence of hemodynamically significant stenosis in either internal carotid artery. The patient's vital signs remained fairly stable. His symptoms had not recurred. Therefore, I did not feel there was indication for further aggressive workup and his treatment had been essentially maximized. The patient and family were understanding of this scenario and felt comfortable with discharge. Temperature was 97.6, pulse 60, respirations 18, O2 saturation 99% on room air, BP 148/83. He was awake and alert. Heart was regular rate and rhythm. Lungs were clear. Abdomen, benign. Neurologically had no dysarthria, had spontaneous movement of extremities and no evidence of focal deficits. DISPOSITION: The patient is discharged back to home. ACTIVITY: As tolerated. DIET: He will be on a heart healthy diet. DISCHARGE MEDICATIONS: 1. He will be on aspirin 81 mg daily. 2. He will continue with. a. Lipitor. b. Xarelto. c. Ditropan. d. Pepcid. e. Digoxin. f. Norvasc. FOLLOWUP: He will follow up with Dr. Lilly, Dr. Leeroy Tran and may return to the hospital at any time should he feel the need. Job ID: [id number]
--- NOTE | 2019-08-03 15:05 | EKG ---
Test Reason : Blood Pressure : / mmHG Vent. Rate : 083 BPM Atrial Rate : 082 BPM P-R Int : 000 ms QRS Dur : 106 ms QT Int : 394 ms P-R-T Axes : 000 000 216 degrees QTc Int : 462 ms Atrial fibrillation with premature ventricular or aberrantly conducted complexes Inferior infarct , age undetermined Abnormal ECG No change from 06/29/2019 Confirmed by PHANI OLIVIER DO ([id number]), design editor MARIA DE JESUS MUSTAFA ([id number]) on 08/03/2019 3:05:17 PM Referred By: Confirmed By:PHANI OLIVIER DO
== END 2019-07-27 11:30 | disposition home or self-care (01) ==
LOC: ERS 20:23 → 2SE 07-26 02:38
PROVIDERS: ADMIT Hospitalist; ATTEND Hospitalist
DX: R47.02 Dysphasia (principal); I10 Essential (primary) hypertension; E78.5 Hyperlipidemia, unspecified; I48.91 Unspecified atrial fibrillation; I25.10 Atherosclerotic heart disease of native coronary artery without angina pectoris; Z86.711 Personal history of pulmonary embolism; Z86.73 Personal history of transient ischemic attack (TIA), and cerebral infarction without residual deficits; Z79.01 Long term (current) use of anticoagulants; Z79.899 Other long term (current) drug therapy; Z88.5 Allergy status to narcotic agent
CPT/HCPCS: 70450; 70551; 80048 ×2; 80053; 80061; 80162; 81003; 83735; 84443; 85025 ×3; 85610; 85730; 93005; 93880; 97139; 99285; G0378 ×4; 36415

== ENCOUNTER 2019-07-28 15:58 | Emergency (ER) | payer MEDICARE ==
[2019-07-28 16:22] LABS: #Lymphocytes 1.3 thou/uL (1.20-3.40); #Monocytes 0.9 thou/uL (0.11-0.59); #Neutrophils 7.1 thou/uL (1.40-6.50); %Basophils 0.2 % (0.0-1.0); %Eosinophils 0.4 % (0.0-10.0); %Lymphocytes 13.6 % (21.0-51.0); %Monocytes 10.1 % (0.0-10.0); %Neutrophils 75.7 % (42.0-75.0); Hemoglobin 12.7 g/dL (14.0-18.0); Mean Corpuscular HGB CONC 33.9 g/dL (32.0-36.0); Mean Corpuscular Hemoglobin 34.7 pg (27.0-31.0); Mean Platelet Volume 6.7 fL (7.4-10.4); Platelet Count 176 thou/uL (130-400); RBC Distribution Width 12.1 % (11.5-14.5); Red Blood Cell (RBC) Count 3.66 mill/uL (4.70-6.10); White Blood Cell (WBC) Count 9.3 thou/uL (4.8-10.8)
[2019-07-28] MEDS ORDERED: Lidocaine 1% w/Epinephrine 1:100K 20 ML VIAL ONE (16:38)
[2019-07-28 16:50] LABS: ALT (SGPT) 17 U/L (8-55); AST (SGOT) 20 U/L (5-34); Albumin 3.9 g/dL (3.4-4.8); Alcohol Less than 10 mg/dL (Less than 10); Alkaline Phosphatase 42 U/L (40-150); Anion Gap 13 mmol/L (10-20); BUN (Urea Nitrogen) 20 mg/dL (8.4-25.7); Bilirubin, Total 0.9 mg/dL (0.2-1.2); Calc. Creatinine Clearance 0 mL/min (70-130); Calcium 9.7 mg/dL (7.8-10.44); Carbon Dioxide 23 mmol/L (23-31); Chloride 103 mmol/L (98-107); Estimated GFR-MDRD 75; Globulin 2.5 g/dL (2.4-3.5); Glucose 130 mg/dL (83-110); Magnesium 1.8 mg/dL (1.6-2.6); Protein, Total 6.4 g/dL (5.8-8.1); Salicylate Less than 8.0 mg/dL (15.0-30.0); Sodium 135 mmol/L (136-145)
--- NOTE | 2019-07-28 16:55 | RAD ---
EXAM: 4 views of the right knee HISTORY: Right knee pain and swelling COMPARISON: None FINDINGS: A moderate knee effusion is seen. There is no evidence of acute fracture or dislocation. Mi ld tricompartmental degenerative changes are seen. Moderate diffuse soft tissue swelling is present. Vascular calcic lesions are seen. IMPRESSION: Soft tissue swelling without evidence of acute osseous abnormality.
--- NOTE | 2019-07-28 17:11 | ULT ---
EXAM: Right lower extremity venous ultrasound HISTORY: Right lower extremity pain and edema COMPARISON: 07/02/2012 TECHNIQUE: Multiplanar grayscale and color Doppler images were obtained in a right lower extremity ve nous ultrasound. Spectral analysis of the Doppler waveforms were performed. FINDINGS: The common femoral vein, profunda femoral vein, superficial femoral vein, and popliteal vei n are normal in appearance without visible thrombus. These vessels demonstrate normal compression, flow, and augmentation. The posterior tibial vein and greater saphenous vein are patent without evidence of thrombus. IMPRESSION: No evidence of DVT.
[2019-07-28 19:17] LABS: Bilirubin Negative (Negative); Blood, Urine Negative (Negative); Clarity Clear (Clear); Glucose, Urine (Dipstick) Normal (Negative); Leukocyte Negative Leu/uL (Negative); Nitrite Negative (Negative); Protein, Urine (Dipstick) 10 mg/dL (Neg-Trace); Urobilinogen 3 mg/dL (Less than 2)
[2019-07-28 19:28] LABS: Amphetamine Not Detected (NotDetected); Barbiturates Screen Not Detected (NotDetected); Benzodiazepine Screen Not Detected (NotDetected); Cocaine Metabolite Screen Not Detected (NotDetected); Medtox Control Line Valid? VALID (VALID); Medtox Reader # READER 4; Methadone Not Detected (NotDetected); Methamphetamine Not Detected (NotDetected); Opiate Screen Not Detected (NotDetected); Oxycodone Screen Not Detected (NotDetected); Phencyclidine (PCP) Not Detected (NotDetected); THC/Cannabinoid Screen Not Detected (NotDetected); Tricyclic Screen Not Detected (NotDetected)
[2019-07-28] MEDS ORDERED: Morphine 4 MG/ML VIAL ONE (19:34)
[2019-07-28 20:02] LABS: RBC Count-Automated (BF) Greater than 890000 /cumm; WBC/Nucleated-Auto (BF) 2565 uL
[2019-07-28 20:03] LABS: BF Color Red; Body Fluid Source Synovial Fluid; Clarity Cloudy/Turbid (Clear); Tube # EDTA
[2019-07-28 20:27] LABS: BF Segmented Neutrophils 74 %; Cell Count Non Hematic 4 %; Lymphocytes 22 %
== END 2019-07-28 20:01 | disposition home or self-care (01) ==
LOC: ERS 15:58
DX: M25.061 Hemarthrosis, right knee (principal); E78.5 Hyperlipidemia, unspecified; E78.00 Pure hypercholesterolemia, unspecified; I48.91 Unspecified atrial fibrillation; I10 Essential (primary) hypertension; Z85.46 Personal history of malignant neoplasm of prostate; Z79.899 Other long term (current) drug therapy
CPT/HCPCS: 20611; 36415; 80053; 80306; 80307; 81003; 82945; 83735; 85025; 85060; 85379; 87070; 87205; 89051; 89060; 96372; J2001; J2270

== ENCOUNTER 2019-07-30 17:14 | Emergency (ER) | payer MEDICARE ==
[2019-07-30 18:32] LABS: #Eosinphils 0.3 thou/uL (0.0-0.7); #Lymphocytes 1.4 thou/uL (1.20-3.40); #Monocytes 1.1 thou/uL (0.11-0.59); #Neutrophils 4.9 thou/uL (1.40-6.50); %Basophils 0.6 % (0.0-1.0); %Eosinophils 3.4 % (0.0-10.0); %Lymphocytes 18.5 % (21.0-51.0); %Monocytes 14.6 % (0.0-10.0); %Neutrophils 62.9 % (42.0-75.0); Hemoglobin 12.5 g/dL (14.0-18.0); Mean Corpuscular HGB CONC 34.6 g/dL (32.0-36.0); Mean Corpuscular Hemoglobin 35.7 pg (27.0-31.0); Mean Platelet Volume 7.1 fL (7.4-10.4); Platelet Count 183 thou/uL (130-400); RBC Distribution Width 12.2 % (11.5-14.5); Red Blood Cell (RBC) Count 3.51 mill/uL (4.70-6.10); White Blood Cell (WBC) Count 7.8 thou/uL (4.8-10.8)
[2019-07-30 18:38] LABS: INR-International Normal Ratio 1.4; PTT 33.8 SEC (22.9-36.1); Prothrombin Time 17.3 SEC (12.0-14.7)
[2019-07-30 18:53] LABS: ALT (SGPT) 17 U/L (8-55); AST (SGOT) 23 U/L (5-34); Albumin 4.1 g/dL (3.4-4.8); Alkaline Phosphatase 43 U/L (40-150); Anion Gap 11 mmol/L (10-20); BUN (Urea Nitrogen) 20 mg/dL (8.4-25.7); Bilirubin, Total 0.8 mg/dL (0.2-1.2); Calc. Creatinine Clearance 0 mL/min (70-130); Calcium 9.5 mg/dL (7.8-10.44); Carbon Dioxide 25 mmol/L (23-31); Chloride 104 mmol/L (98-107); Estimated GFR-MDRD 73; Globulin 2.6 g/dL (2.4-3.5); Glucose 82 mg/dL (83-110); Potassium 3.7 mmol/L (3.5-5.1); Protein, Total 6.7 g/dL (5.8-8.1); Sodium 136 mmol/L (136-145)
--- NOTE | 2019-07-30 19:11 | ULT ---
ULTRASOUND DOPPLER DUPLEX VENOUS RIGHT LOWER EXTREMITY: DATE: 07/30/2019 HISTORY: Right lower extremity pain, edema, and erythema. Dr. Sutherland reported the DVT by telephone to Dr. Thompson at 7:08 PM on 07/30/2019 TECHNIQUE: Grayscale, color-flow, and spectral analysis, of the right common femoral, profunda femoral, greater saphenous, femoral, popliteal, and posterior tibial, veins. FINDINGS: Incomplete compressibility of distal femoral vein extending into the proximal popliteal vein. There i s blood flow in those segments. No DVT in the rest of the veins. IMPRESSION: Positive for nonocclusive deep venous thrombosis from distal femoral vein to proximal popliteal vein.
== END 2019-07-30 19:50 | disposition home or self-care (01) ==
LOC: ERS 17:14
DX: I82.411 Acute embolism and thrombosis of right femoral vein (principal); I82.431 Acute embolism and thrombosis of right popliteal vein; M25.061 Hemarthrosis, right knee; E78.5 Hyperlipidemia, unspecified; I10 Essential (primary) hypertension; Z79.899 Other long term (current) drug therapy
CPT/HCPCS: 36415; 80053; 85025; 85610; 85730

== ENCOUNTER 2019-08-15 06:15 | Day surgery (SDC) | payer MEDICARE ==
[2019-08-14 11:37] VITALS: BMI 25.0
[2019-08-15] MEDS ORDERED: Lidocaine 1% (PF) 30 ML VIAL ONE (06:39)
[2019-08-15 07:06] LABS: INR-International Normal Ratio 1.2; Prothrombin Time 15.4 SEC (12.0-14.7)
[2019-08-15 07:07] LABS: PTT 40.6 SEC (22.9-36.1)
[2019-08-15 07:12] LABS: Hemoglobin 12.9 g/dL (14.0-18.0); Mean Corpuscular HGB CONC 34.3 g/dL (32.0-36.0); Mean Corpuscular Hemoglobin 34.7 pg (27.0-31.0); Mean Platelet Volume 6.7 fL (7.4-10.4); Platelet Count 229 thou/uL (130-400); RBC Distribution Width 12.5 % (11.5-14.5); Red Blood Cell (RBC) Count 3.72 mill/uL (4.70-6.10); White Blood Cell (WBC) Count 5.1 thou/uL (4.8-10.8)
[2019-08-15 07:19] LABS: ALT (SGPT) 12 U/L (8-55); AST (SGOT) 19 U/L (5-34); Alkaline Phosphatase 48 U/L (40-110); Anion Gap 13 mmol/L (10-20); BUN (Urea Nitrogen) 20 mg/dL (8.4-25.7); Bilirubin, Total 0.9 mg/dL (0.2-1.2); Calc. Creatinine Clearance 61 mL/min (70-130); Calcium 9.3 mg/dL (7.8-10.44); Carbon Dioxide 22 mmol/L (23-31); Cardiac Risk 2.7 (Less than 4.5); Chloride 107 mmol/L (98-107); Cholesterol 109 mg/dl (< 200 Desired); Estimated GFR-MDRD 73; Globulin 2.8 g/dL (2.4-3.5); Glucose 97 mg/dL (83-110); HDL Cholesterol 41 mg/dL (>60 Neg Risk); LDL Cholesterol, Calculated 53 mg/dL; Protein, Total 6.8 g/dL (5.8-8.1); Sodium 138 mmol/L (136-145); Triglycerides 75 mg/dL (Less than 150)
[2019-08-15 07:31] LABS: Band 1 % (5-11); Eosinophils 6 % (0-10); Lymphocytes 34 % (21-51); MDiff Complete? YES; Monocytes 13 % (0-10); Neutrophil 45 % (42-75); RBC Morphology Normal; Reactive Lymphocytes 1 % (0-10)
[2019-08-15] MEDS ORDERED: Fentanyl 100 MCG/2 ML VIAL ONE (07:51)
[2019-08-15] MEDS ORDERED: Midazolam HCl 2 mg/2 ml Vial ONE (07:51)
[2019-08-15] MEDS ORDERED: Iopamidol 370 76% 100 ML VIAL ONE (17:43)
--- NOTE | 2019-08-18 17:13 | EKG ---
Test Reason : PREOP Blood Pressure : / mmHG Vent. Rate : 078 BPM Atrial Rate : 375 BPM P-R Int : 000 ms QRS Dur : 104 ms QT Int : 408 ms P-R-T Axes : 000 017 -86 degrees QTc Int : 465 ms Atrial fibrillation Possible Inferior infarct (cited on or before 27-FEB-2017) Abnormal ECG When compared with ECG of 25-JUL-2019 20:52, Nonspecific T wave abnormality has replaced inverted T waves in Lateral leads Confirmed by TANGELA SOMMERS ([id number]) on 08/18/2019 5:13:23 PM Referred By: ALEJANDRO Confirmed By:TANGELA SOMMERS
== END 2019-08-15 11:34 | disposition home or self-care (01) ==
LOC: CCL 06:15
PROVIDERS: ATTEND Internal Medicine Cardiovascular Disease
PROC: 4A023N7 Measurement of Cardiac Sampling and Pressure, Left Heart, Percutaneous Approach (ICD-10-PCS; principal; 2019-08-15)
PROC: B2111ZZ Fluoroscopy of Multiple Coronary Arteries using Low Osmolar Contrast (ICD-10-PCS; 2019-08-15)
DX: I25.10 Atherosclerotic heart disease of native coronary artery without angina pectoris (principal); I25.82 Chronic total occlusion of coronary artery; I10 Essential (primary) hypertension; I25.5 Ischemic cardiomyopathy; I48.2 Chronic atrial fibrillation; I35.0 Nonrheumatic aortic (valve) stenosis; Z86.73 Personal history of transient ischemic attack (TIA), and cerebral infarction without residual deficits; Z79.01 Long term (current) use of anticoagulants; Z79.899 Other long term (current) drug therapy; Z88.5 Allergy status to narcotic agent
CPT/HCPCS: 80053; 80061; 85025; 85610; 85730; 93005; 93010; 93458; 99152; C1769; J1644; J2001; J2250; J3010; Q9967

== ENCOUNTER 2019-09-13 10:25 | Day surgery (SDC) | payer MEDICARE ==
[2019-09-12 15:14] VITALS: BMI 25.0
[2019-09-13 12:51] LABS: #Basophils 0.1 thou/uL (0.0-0.2); #Eosinphils 0.2 thou/uL (0.0-0.7); #Lymphocytes 1.6 thou/uL (1.20-3.40); #Monocytes 0.8 thou/uL (0.11-0.59); #Neutrophils 3.5 thou/uL (1.40-6.50); %Eosinophils 2.5 % (0.0-10.0); %Lymphocytes 25.6 % (21.0-51.0); %Monocytes 12.9 % (0.0-10.0); %Neutrophils 57.9 % (42.0-75.0); Hemoglobin 14.9 g/dL (14.0-18.0); Mean Corpuscular HGB CONC 33.1 g/dL (32.0-36.0); Mean Corpuscular Hemoglobin 34.1 pg (27.0-31.0); Mean Platelet Volume 6.8 fL (7.4-10.4); Platelet Count 180 thou/uL (130-400); RBC Distribution Width 12.5 % (11.5-14.5); Red Blood Cell (RBC) Count 4.36 mill/uL (4.70-6.10); White Blood Cell (WBC) Count 6.1 thou/uL (4.8-10.8)
[2019-09-13 12:57] LABS: INR-International Normal Ratio 1.2; Prothrombin Time 15.6 SEC (12.0-14.7)
[2019-09-13 12:58] LABS: PTT 30.6 SEC (22.9-36.1)
[2019-09-13 13:09] LABS: Anion Gap 12 mmol/L (10-20); BUN (Urea Nitrogen) 19 mg/dL (8.4-25.7); Calc. Creatinine Clearance 63 mL/min (70-130); Carbon Dioxide 27 mmol/L (23-31); Chloride 102 mmol/L (98-107); Estimated GFR-MDRD 75; Glucose 89 mg/dL (83-110); Sodium 137 mmol/L (136-145)
[2019-09-13] MEDS ORDERED: PROPOFOL 20 ML ONE (13:53)
--- NOTE | 2019-09-13 19:36 | ECHO ---
DATE OF SERVICE: 09/13/19 PREPROCEDURE DIAGNOSIS: Stroke. Transesophageal echo was performed to evaluate for intracardiac shunt. The Anesthesiology department provided with sedation for the patient. Please see their notes for det ails. After adequate sedation was achieved, transesophageal probe was inserted into the mouth and into the esophagus. Multiplanar views were obtained. Left ventricle is normal size. Systolic function is normal at 50-55%. Left atrium is dilated. Right atrium is mildly dilated. The interatrial septum appears to be intact by color Doppler and by agitated saline study. The right ventricle is dilated. Aortic valve is heavily calcified with reduced cusp opening. Severe aortic stenosis. Mitral valve has mitral annular calcification. Mild to moderate MR. Tricuspid valve is structurally normal. There is mild TR. Pulmonary valve is structurally normal. CONCLUSIONS: 1. Normal systolic function. 2. Heavily calcified aortic valve with severe aortic valve stenosis and mild aortic valve regurgitat ion. 3. Mitral annular calcification with mild to moderate mitral regurgitation. 4. Interatrial septum appears to be intact. Agitated saline study was negative for any intracardiac or pulmonary shunts.
--- NOTE | 2019-09-17 10:30 | EKG ---
Test Reason : PREOP Blood Pressure : / mmHG Vent. Rate : 074 BPM Atrial Rate : 092 BPM P-R Int : 000 ms QRS Dur : 102 ms QT Int : 426 ms P-R-T Axes : 000 004 -64 degrees QTc Int : 472 ms Atrial fibrillation Inferior infarct (cited on or before 27-FEB-2017) Abnormal ECG Confirmed by MIKYE ERIC MD ([id number]) on 09/17/2019 10:30:48 AM Referred By: ALEJANDRO Confirmed By:MIKEY ERIC MD
== END 2019-09-13 15:30 | disposition home or self-care (01) ==
LOC: CCL 10:25
PROVIDERS: ATTEND Internal Medicine Cardiovascular Disease
DX: I08.3 Combined rheumatic disorders of mitral, aortic and tricuspid valves (principal); I10 Essential (primary) hypertension; E66.3 Overweight; I25.10 Atherosclerotic heart disease of native coronary artery without angina pectoris; I48.20 Chronic atrial fibrillation, unspecified; I25.5 Ischemic cardiomyopathy; Z88.5 Allergy status to narcotic agent; Z86.73 Personal history of transient ischemic attack (TIA), and cerebral infarction without residual deficits; Z79.01 Long term (current) use of anticoagulants; Z68.24 Body mass index [BMI] 24.0-24.9, adult
CPT/HCPCS: 80048; 85025; 85610; 85730; 93005; 93010; 93312; J2704